=== PATIENT | male | born 2000 | race Asian ===

== ENCOUNTER 2022-04-25 21:34 | Emergency (ER) | payer OTHER ==
[~2022-04-25] VITALS: Ht 172.7 cm; Wt 74.5 kg
[2022-04-25 22:15] VITALS: BP 114/85
[2022-04-25] MEDS ORDERED: KETOROLAC TROMETHAMINE 30 MG/ML VIAL IM ONE (22:30)
[2022-04-25] MEDS ORDERED: METHOCARBAMOL 500 MG TABLET PO ONE (22:30)
[2022-04-25] MEDS ORDERED: NAPR-1025 PO (22:33)
[2022-04-25] MEDS ORDERED: GABA-1181 PO (22:33)
[2022-04-25] MEDS ORDERED: CYCL-448 PO (22:33)
== END 2022-04-25 22:42 | disposition home or self-care (01) ==
LOC: EMS 21:34
DX: R51.9 Headache, unspecified (principal); V49.49XA Driver injured in collision with other motor vehicles in traffic accident, initial encounter; Y93.89 Activity, other specified; Y92.89 Other specified places as the place of occurrence of the external cause; Y99.8 Other external cause status
CPT/HCPCS: 99283; 96372; J1885